=== PATIENT | male | born 1950 | race Caucasian/White ===

== ENCOUNTER 2022-04-16 08:55 | Outpatient (CLI) | payer OTHER ==
[2022-04-16] MEDS ORDERED: CYSTOGRAFIN 300 ML INFUS..BTL UR ONE (09:14)
== END 2022-04-16 20:10 | disposition home or self-care (01) ==
LOC: SRD 08:55
PROVIDERS: ATTEND Urology Pediatric Urology
DX: C61 Malignant neoplasm of prostate (principal)
CPT/HCPCS: 74430; 51600; Q9958